=== PATIENT | female | born 1980 | race Caucasian/White ===

== ENCOUNTER 2018-08-14 05:09 | Emergency (ER) | payer SELFPAY ==
[~2018-08-14] VITALS: Ht 160 cm; Wt 79.5 kg
[2018-08-14 05:14] VITALS: Ht 160 cm; Wt 79.5 kg
[2018-08-14] MEDS ORDERED: IBUPROFEN800 MG PO (06:41)
[2018-08-14] MEDS ORDERED: ACETAMINOPHEN500 M1 PO (06:41)
[2018-08-14] MEDS ORDERED: CYCLOBENZAPRINE10 MG PO (06:41)
[2018-08-14 07:08] VITALS: BP 113/80
== END 2018-08-14 07:05 | disposition home or self-care (01) ==
LOC: D.ER 05:09
DX: S01.01XA Laceration without foreign body of scalp, initial encounter (principal); Y04.2XXA Assault by strike against or bumped into by another person, initial encounter; Y93.89 Activity, other specified; Y92.89 Other specified places as the place of occurrence of the external cause

== ENCOUNTER 2018-08-24 01:27 | Emergency (ER) | payer SELFPAY ==
[~2018-08-24 01:27] MED LIST: ACETAMINOPHEN500 M1 PO; CYCLOBENZAPRINE10 MG PO; IBUPROFEN800 MG PO
[2018-08-24 01:52] VITALS: BMI 31.0
[2018-08-24 02:15] VITALS: BP 128/65
== END 2018-08-24 02:15 | disposition home or self-care (01) ==
LOC: D.ER 01:27
DX: S01.91XD Laceration without foreign body of unspecified part of head, subsequent encounter (principal); X58.XXXD Exposure to other specified factors, subsequent encounter; Z48.02 Encounter for removal of sutures